=== PATIENT | female | born 1965 | race Caucasian/White ===

== ENCOUNTER 2019-06-16 04:56 | Emergency (ER) | payer OTHER ==
[2019-06-16] MEDS ORDERED: Famotidine IV* 10 MG/ML 2 ML (20 mg) IV SLOW PU ONE (06:09)
[2019-06-16] MEDS ORDERED: diPHENhydraMINE IV* 50 MG/ML 1 ml VIAL (BENADRYL) IV ONE (06:09)
[2019-06-16] MEDS ORDERED: Dexamethasone IV* 4 MG/ML 1 ML (4 MG) IV SLOW PU ONE (06:09)
[2019-06-16] MEDS ORDERED: NS 0.9% 1000 ML** 1,000 ML IV ONE (06:10)
[2019-06-16 06:54] LABS: ABS Lymphocytes 0.8 10^3/ul (1.0-4.8); ABS Monocytes 0.6 10^3/ul (0-0.8); ABS Neutrophils 9.8 10^3/ul (1.5-7.7); Eosinophil % 0.2 %; Hematocrit 42 % (35-47); Hemoglobin 14.1 g/dL (12.0-16.0); Lymphocyte % 6.8 %; Mean Corpuscular HGB Conc 34 g/dL (31-36); Mean Corpuscular Hemoglobin 30 pg (27-31); Mean Corpuscular Volume 90 fL (80-97); Mean Platelet Volume 8.8 fL (7.4-10.4); Nucleated Red Blood Cells % 0.1; Platelet Count 239 10^3/uL (150-450); Red Blood Count 4.66 10^6 /uL (3.70-4.87); Red Cell Distribution Width 13 % (10-15); White Blood Count 11.2 10^3/uL (3.5-10.8)
--- NOTE | 2019-06-16 07:02 | ED ---
Allergic Reaction/Systemic - HPI Summary HPI Summary: Patient is a 54-year-old female with no significant past medical history presenting to the ED with allergic reaction. Patient states yesterday she began to have hives over her upper chest and her shoulders. She then developed hives near her hip area. Last night she started to have some lip swelling after she took 20 mg prednisone from her PCP. Despite taking Benadryl last night, she awoke with upper and lower lip swelling as well as swelling in her hands and feeling of some tingling. She does endorse pruritus to the upper chest wall. She denies any new soaps, lotions or environmental changes. She does however indoors getting new fake eyelashes 2 days prior. She did also endorses being stung by a P3 times, however this was 6 days ago. She denies any known allergies and she has never had an allergic reaction the past. She denies any dysphagia or odynophagia or airway difficulty. She denies any shortness of breath or chest pain. She states she feels otherwise well. - History of Current Complaint Chief Complaint: EDAllergicReaction Time Seen by Provider: 06/16/19 06:03 Hx Obtained From: Patient Onset/Duration: Sudden Onset Timing: Constant Severity Initially: Severe Severity Currently: Severe Pain Intensity: 6 Pain Scale Used: 0-10 Numeric Location: Other - lips and hands Character: Swelling, Pruritus Alleviating Factor(s): Nothing Associated Signs And Symptoms: Negative: Abdominal Pain, Chest Pain, Cough Wheezing, Difficulty Breathing, Hoarseness, Lightheadedness, Nausea, Syncope, Throat Tightening, Vomiting - Allergies/Home Medications Allergies/Adverse Reactions: Allergies Allergy/AdvReac Type Severity Reaction Status Date / Time morphine Allergy Unknown Verified 06/16/19 05:24 Reaction Details PMH/Surg Hx/FS Hx/Imm Hx Previously Healthy: Yes - Cancer History Hx Chemotherapy: No Hx Radiation Therapy: No - Immunization History Hx Pertussis Vaccination: No Immunizations Up to Date: Yes Infectious Disease History: No Infectious Disease History: Denies: Traveled Outside the [place] in Last 30 Days - Social History Occupation: Employed Full-time Lives: With Family Alcohol Use: Weekly Hx Substance Use: No Substance Use Type: Reports: None Hx Tobacco Use: No Smoking Status (MU): Never Smoked Tobacco Review of Systems Negative: Fever, Chills, Fatigue, Skin Diaphoresis Positive: Other - lip swelling Negative: Palpitations, Chest Pain Negative: Shortness Of Breath, Cough Musculoskeletal: Negative Positive: Other - diffuse pruritic hives Neurological: Negative All Other Systems Reviewed And Are Negative: Yes Physical Exam Triage Information Reviewed: Yes Vital Signs On Initial Exam: Initial Vitals Temp Pulse Resp BP Pulse Ox 98.5 F 72 20 130/89 99 06/16/19 05:05 06/16/19 05:05 06/16/19 05:05 06/16/19 05:05 06/16/19 05:05 Vital Signs Reviewed: Yes Appearance: Positive: Well-Appearing, Well-Nourished Skin: Positive: Skin Color Reflects Adequate Perfusion, Other - diffuse pruritic hives Head/Face: Positive: Normal Head/Face Inspection Eyes: Positive: EOMI, [place], Conjunctiva Clear ENT: Positive: Other - lip swelling without tongue swelling, airway patent Neck: Positive: Supple, No Lymphadenopathy Respiratory/Lung Sounds: Positive: Clear to Auscultation, Breath Sounds Present Cardiovascular: Positive: RRR, Pulses are Symmetrical in both Upper and Lower Extremities Musculoskeletal: Positive: Normal, Strength/ROM Intact Neurological: Positive: Sensory/Motor Intact, Alert, Oriented to Person Place, Time, Speech Normal Psychiatric: Positive: Normal, Affect/Mood Appropriate AVPU Assessment: Alert Diagnostics - Vital Signs Vital Signs Temp Pulse Resp BP Pulse Ox 06/16/19 05:05 98.5 F 72 20 130/89 99 - Laboratory Lab Results: Lab Results 06/16/19 Range/Units 06:36 WBC 11.2 H (3.5-10.8) 10^3/uL RBC 4.66 (3.70-4.87) 10^6 /uL Hgb 14.1 (12.0-16.0) g/dL Hct 42 (35-47) % MCV 90 (80-97) fL MCH 30 (27-31) pg MCHC 34 (31-36) g/dL RDW 13 (10-15) % Plt Count 239 (150-450) 10^3/uL MPV 8.8 (7.4-10.4) fL Neut % (Auto) 87.3 % Lymph % (Auto) 6.8 % [place] % (Auto) 5.6 % Eos % (Auto) 0.2 % Baso % (Auto) 0.1 % Absolute Neuts (auto) 9.8 H (1.5-7.7) 10^3/ul Absolute Lymphs (auto) 0.8 L (1.0-4.8) 10^3/ul Absolute Monos (auto) 0.6 (0-0.8) 10^3/ul Absolute Eos (auto) 0.0 (0-0.6) 10^3/ul Absolute Basos (auto) 0.0 (0-0.2) 10^3/ul Absolute Nucleated RBC 0.0 10^3/ul Nucleated RBC % 0.1 Result Diagrams: 06/16/19 06:36 06/16/19 06:36 Lab Statement: Any lab studies that have been ordered have been reviewed, and results considered in the medical decision making process. Allergic Reaction Course/Dx - Course Course Of Treatment: During this course of treatment, the patient's evaluated for diffuse allergic reaction. She took one Benadryl last evening which did not improve her symptoms. She began to develop hives 2 days ago, last night with upper lip swelling and some morning with lower lip swelling as well. She denies any medication changes, lotions, or environmental changes. She denies taking any Manuel inhibitors or other medications. She states she is otherwise healthy and has only had an allergic reaction to morphine in the past which was not similar in her reaction at this time. She has never had a reaction to this in the past. She does endorse being stung 36 days ago by a bee and she also endorses having new fake eyelashes placed 2 days ago, however there is only a small amount of erythema around the eyelashes without obvious swelling. She did take a prednisone from her PCP as well as famotidine yesterday. She did not take anything this morning prior to arrival. On physical examination, patient appears to be having an allergic reaction with upper and lower lip swelling with diffuse hives to the upper chest area and shoulders with some hives around the face. She does endorse pruritus. Airway is patent. No swelling to the tongue. No cervical LAD. Lungs CTA, RRR. She denies any difficulty with breathing. An IV was placed and she is given fluids, Decadron, famotidine and Benadryl. Labs are obtained which show a slightly elevated white count. After medications are given, a weighted approximately 1.5 hours and complete reevaluation. Reevaluation: Patient appears somewhat improved with slightly decreased of lip swelling and decrease of hives. Patient states she feels "tight" around her eyebrows and her hands. Continues to be able to swallow well and denies any throat scratching her pain. She will be prescribed 50 mg 3 days, however she will take 60 mg of the prednisone she currently has tomorrow morning. She will also take famotidine 40 mg twice daily 5 days or until symptoms begin to improve. She will take Benadryl 25 mg 4 times daily or Benadryl 50 mg twice daily for allergic reaction. She is diagnosed with allergic reaction of unknown origin. She is given strict return precautions to return to the ED if she develops any worsening or changing symptoms, specifically airway difficulty or throat symptoms. - Diagnoses Differential Diagnosis/HQI/PQRI: Positive: Angioedema, Local Allergic Reaction, Urticaria Provider Diagnoses: Allergic reaction Discharge ED - Sign-Out/Discharge Documenting (check all that apply): Patient Departure Patient Received Moderate/Deep Sedation with Procedure: No - Discharge Plan Condition: Stable Disposition: HOME Prescriptions: Famotidine TAB* [Pepcid 20 MG TAB*] 40 mg PO BID #10 tab predniSONE TAB* [Deltasone TAB*] 50 mg PO DAILY #3 tab MDD 1 Patient Education Materials: Urticaria (ED), General Allergic Reaction (ED) Referrals: Km Garsia MD [Primary Care Provider] - Additional Instructions: You may try to use cold compresses to the lips to help decrease swelling Benadryl 50 mg twice daily or 25 mg 4 times daily for allergic reaction Famotidine 40 mg twice daily if you continue to have allergic reaction symptoms Prednisone, take 60 mg tomorrow and 50 mg for the next 3 days You will follow-up with your PCP If you begin to develop any throat symptoms or difficulty with breathing, return to the ED immediately - Billing Disposition and Condition Condition: STABLE Disposition: Home
[2019-06-16 07:08] LABS: Albumin 4.2 g/dL (3.2-5.2); Albumin/Globulin Ratio 1.6 (1-3); BUN/Creatinine Ratio 22.4 (8-20); C Reactive Protein 7.02 mg/L (<8.01); Calcium 9.3 mg/dL (8.6-10.3); EGFR African American 131.6 (>60); EGFR Non-African American 108.7 (>60); Globulin 2.7 g/dL (2-4); Potassium 3.8 mmol/L (3.5-5.0); Total Bilirubin 0.4 mg/dL (0.2-1.0); Total Protein 6.9 g/dL (6.4-8.9)
[2019-06-16 08:47] VITALS: BP 116/67
== END 2019-06-16 08:10 | disposition home or self-care (01) ==
LOC: ED 04:56
DX: T78.40XA Allergy, unspecified, initial encounter (principal); X58.XXXA Exposure to other specified factors, initial encounter; Y92.9 Unspecified place or not applicable; Z79.899 Other long term (current) drug therapy; Z88.5 Allergy status to narcotic agent
CPT/HCPCS: 36415; 80053; 83605; 85025; 86140; 96374; 96375; 99284; J1100; J1200